=== PATIENT | male | born 1960 | race Hispanic/Latino ===

== ENCOUNTER 2019-11-17 22:22 | Emergency (ER) | payer MEDICAID, OTHER ==
[~2019-11-17] VITALS: Ht 167.6 cm; Wt 65.8 kg
[2019-11-17 22:42] VITALS: BP 126/72
[2019-11-17 22:50] VITALS: BP 126/72
[2019-11-17] MEDS ORDERED: XYLOCAINE 1%-EPI 1:100,000 ONE (22:50)
--- NOTE | 2019-11-17 23:02 | ER.PDOC ---
General Chief Complaint: Extremities Stated Complaint: ARM INJURY Time seen by MD: 22:46 Source: other (caregiver) Exam Limitations: other (poor historian) History of Present Illness Initial Comments Pt was found on floor by staff, had just arrived to their facility today. Has cut on R elbow. No other injuries seen. Occurred: this evening Severity: mild Allergies: Coded Allergies: No Known Allergies (Unverified , 11/17/19) Past Medical History Medical History: thyroid disease Family History Significant Family History: no pertinent family hx Social History Alcohol Use: none Drug Use: none Review of Systems Constitutional: no symptoms reported Respiratory: no symptoms reported Cardiovascular: no symptoms reported Skin: see HPI (cut on R elbow) Psychiatric/Neurological: no symptoms reported, other (chronic dementia) Physical Exam General Appearance: Alert, Other (unable to answer all questions, baseline per staff) Hand: nml inspection Wrist: nml inspection Forearm/Elbow: see diagram 1 - laceration, appears to be re-opening of old laceration as scar is seen extending proximal to lac, edges appear partially epithelialized. No t bleeding Neuro/Vasc/Tendon: sensation nml, motor nml, no vascular compromise Head/ENT: nml inspection Neck/Back: nml inspection Abdomen: non-tender ED LACERATION WOUND REPAIR # of Wounds/Lacerations Presen: 1 Wound Length (cm): 2 (2.6cm) Wound cleaned: betadine Distal NVT: neuro intact Anesthesia type: local Anesthesia: Lidocaine w/ Epi Wound's Depth, Shape: linear, subcutaneous Wound Explored: clean Tendon Intact: Yes Wound Repaired With: sutures Suture Size/Type: 4:0, 3:0, prolene Suture Style: interupted Number of Sutures: 5 Layer Closure?: No Results/Orders Results/Orders Orders - BOB DUENAS DO Xr Elbow Rt (11/17/19 23:02) Vital Signs Date Time Temp Pulse Resp B/P (MAP) Pulse Ox O2 Delivery O2 Flow Rate FiO2 11/17/19 22:50 98.2 80 16 126/72 (90) 96 Room Air 11/17/19 22:42 98.2 80 16 126/72 (90) 96 Room Air 11/17/19 22:42 98.2 80 16 11/17/19 22:42 98.2 80 16 96 Progress Progress Pt uncooperative with repair, required high tension due to him not extending elbow completely for repair. Concern for wound dehiscence and poor result. Recommended follow up with wound care and placed on abx. Departure Time of Disposition: 23:49 Disposition: 01 HOME, SELF-CARE Impression: Primary Impression: Laceration of elbow, right Condition: Stable Referrals: SOUMYA MIRELES MD (PCP) PRIMARY CARE PROVIDER Duration or Time Spent with Pa: 55 Problem Qualifiers Primary Impression: Laceration of elbow, right Encounter type: initial encounter Qualified Codes: S51.011A - Laceration without foreign body of right elbow, initial encounter BOB DUENAS DO Nov 17, 2019 23:02
--- NOTE | 2019-11-17 23:16 | DIREP ---
PROCEDURE:XRAY ELBOW 2VWS-RT COMPARISON:None. INDICATIONS:fall. injury FINDINGS: BONES:Normal. JOINTS:Normal. No displaced anterior or posterior fat pads. SOFT TISSUES:Soft tissue injury overlying the olecranon OTHER:Normal. CONCLUSION:No fracture or malalignment identified. Dictated by: Prabhu Eckert MD on 11/17/2019 at 11:14 PM
[2019-11-17 23:50] VITALS: BP 111/67
--- NOTE | 2019-11-17 23:50 | NUR ---
WOUND CARE WOUND CLEANED AND DRESSING PLACED
== END 2019-11-17 23:54 | disposition home or self-care (01) ==
LOC: ER 22:22
DX: S51.011A Laceration without foreign body of right elbow, initial encounter (principal); W45.8XXA Other foreign body or object entering through skin, initial encounter; Y93.89 Activity, other specified; Y92.89 Other specified places as the place of occurrence of the external cause; Y99.8 Other external cause status
CPT/HCPCS: 12002; 99283; 73070-RT

== ENCOUNTER → 2019-12-18 | Outpatient (CLI) | payer OTHER | END | disposition home or self-care (01) | LOC: NPLAB 16:14 | PROVIDERS: ATTEND Internal Medicine | DX: R89.5 Abnormal microbiological findings in specimens from other organs, systems and tissues (principal) | CPT/HCPCS: 87070; 87077; 87186 ==

== ENCOUNTER → 2020-02-07 | Outpatient (CLI) | payer OTHER ==
[2020-02-07 14:48] LABS: BASOPHIL # 0.1 10^3/uL (0.0-0.1); BASOPHIL % 0.5 % (0.0-0.2); EOSINOPHIL # 0.1 10^3/uL (0.0-0.2); EOSINOPHIL % 1.3 % (0.0-5.0); LYMPHOCYTES % 17.3 % (24.0-44.0); MEAN CORP HGB 27.3 pg (26-34); MONOCYTES % 10.3 % (5.0-12.0); NEUTROPHIL # 6.9 10^3/uL (1.8-7.7); NEUTROPHILS % 70.1 % (41.0-85.0); PLATELET COUNT 513 10^3/uL (150-400); RED CELL DISTRIBUTION WIDTH 13.9 % (11.5-14.5)
[2020-02-07 15:03] LABS: CALCIUM 8.8 mg/dL (8.4-10.5); CARBON DIOXIDE 26.4 mmol/L (20.0-32)
== END | disposition home or self-care (01) ==
LOC: NPLAB 10:53
PROVIDERS: ATTEND Internal Medicine
DX: E03.9 Hypothyroidism, unspecified (principal); F03.90 Unspecified dementia, unspecified severity, without behavioral disturbance, psychotic disturbance, mood disturbance, and anxiety
CPT/HCPCS: 36415; 80053; 85025

== ENCOUNTER → 2020-04-04 | Outpatient (CLI) | payer OTHER | END | disposition home or self-care (01) | LOC: NPLAB 19:48 | PROVIDERS: ATTEND Internal Medicine | DX: Z51.81 Encounter for therapeutic drug level monitoring (principal) | CPT/HCPCS: 80202 ==

== ENCOUNTER → 2020-04-06 | Outpatient (CLI) | payer OTHER ==
[2020-04-06 13:08] LABS: CALCIUM 9.1 mg/dL (8.4-10.5); CARBON DIOXIDE 29.2 mmol/L (20.0-32)
[2020-04-06 13:09] LABS: APPEARANCE,URINE CLEAR (CLEAR); MEAN CORP HGB 26.4 pg (26-34); RED CELL DISTRIBUTION WIDTH 14.9 % (11.5-14.5); UA COLOR YELLOW (YELLOW)
[2020-04-06 13:10] LABS: BILIRUBIN,URINE NEGATIVE (NEGATIVE); UROBILINOGEN,URINE 0.2 (NEGATIVE)
== END | disposition home or self-care (01) ==
LOC: LAB 12:53
PROVIDERS: ATTEND Internal Medicine
DX: M86.9 Osteomyelitis, unspecified (principal); G47.00 Insomnia, unspecified; F41.9 Anxiety disorder, unspecified; R41.82 Altered mental status, unspecified
CPT/HCPCS: 36415; 80053; 80202; 81000; 85027; 87086

== ENCOUNTER → 2020-04-08 | Outpatient (CLI) | payer OTHER | END | disposition home or self-care (01) | LOC: NPLAB 13:12 | PROVIDERS: ATTEND Internal Medicine | DX: M86.9 Osteomyelitis, unspecified (principal) | CPT/HCPCS: 36415; 80202 ==

== ENCOUNTER → 2020-04-11 | Outpatient (CLI) | payer OTHER | END | disposition home or self-care (01) | LOC: NPLAB 17:01 | PROVIDERS: ATTEND Internal Medicine | DX: M86.9 Osteomyelitis, unspecified (principal) | CPT/HCPCS: 36415; 80202 ==

== ENCOUNTER → 2020-04-13 | Outpatient (CLI) | payer OTHER | END | disposition home or self-care (01) | LOC: NPLAB 04:30 | PROVIDERS: ATTEND Internal Medicine | DX: L89.014 Pressure ulcer of right elbow, stage 4 (principal); L89.013 Pressure ulcer of right elbow, stage 3 | CPT/HCPCS: 80202 ==

== ENCOUNTER → 2020-04-14 | Outpatient (CLI) | payer OTHER | END | disposition home or self-care (01) | LOC: NPLAB 17:30 | PROVIDERS: ATTEND Internal Medicine | DX: M86.9 Osteomyelitis, unspecified (principal) | CPT/HCPCS: 80202 ==

== ENCOUNTER → 2020-04-23 | Outpatient (CLI) | payer OTHER ==
[2020-04-23 18:21] LABS: CALCIUM 8.2 mg/dL (8.4-10.5)
== END | disposition home or self-care (01) ==
LOC: NPLAB 16:31
PROVIDERS: ATTEND Internal Medicine
DX: M86.9 Osteomyelitis, unspecified (principal)
CPT/HCPCS: 80048; 80202

== ENCOUNTER → 2020-04-26 | Outpatient (CLI) | payer OTHER ==
[2020-04-28 05:44] LABS: APPEARANCE,URINE CLEAR (CLEAR); BILIRUBIN,URINE NEGATIVE (NEGATIVE); UA COLOR YELLOW (YELLOW); UROBILINOGEN,URINE 0.2 (NEGATIVE)
== END | disposition home or self-care (01) ==
LOC: NPLAB 16:45
PROVIDERS: ATTEND Internal Medicine
DX: N39.0 Urinary tract infection, site not specified (principal)
CPT/HCPCS: 81003; 87086

== ENCOUNTER → 2020-05-10 | Outpatient (CLI) | payer OTHER | END | disposition home or self-care (01) | LOC: NPLAB 19:33 | PROVIDERS: ATTEND Internal Medicine | DX: M86.9 Osteomyelitis, unspecified (principal) | CPT/HCPCS: 36415; 80202 ==